=== PATIENT | female | born 1935 | race Caucasian/White ===

== ENCOUNTER 2017-07-30 10:47 | Observation (INO) | payer MEDICARE, OTHER, SELFPAY | END 2017-07-31 11:35 | disposition home or self-care (01) | PROVIDERS: Admitting Provider Internal Medicine; Emergency Provider Emergency Medicine; PCP Internal Medicine; Visit Provider Internal Medicine | DX: I50.23 Acute on chronic systolic (congestive) heart failure (principal); R06.02 Shortness of breath; R07.89 Other chest pain; I10 Essential (primary) hypertension; G47.33 Obstructive sleep apnea (adult) (pediatric); I25.10 Atherosclerotic heart disease of native coronary artery without angina pectoris; E78.5 Hyperlipidemia, unspecified | CPT/HCPCS: 36415; 71010; 71045; 80048; 80053; 83880; 84484; 85025; 85610; 85730; 93005; 93010; 96372; 96374; 99058; 99285; G0378; J1650; J1940 ==

== ENCOUNTER 2017-08-22 08:30 | Outpatient (RCR) | payer MEDICARE, OTHER, SELFPAY | END 2017-09-11 14:00 | LOC: CAR 08:30 | PROVIDERS: PCP Internal Medicine; Visit Provider Internal Medicine | DX: I20.9 Angina pectoris, unspecified (principal) ==

== ENCOUNTER → 2017-09-04 12:17 | Outpatient (CLI) | payer MEDICARE, OTHER, SELFPAY ==
[2017-09-04 13:50] LABS: Calcium 9.8 mg/dL (8.4-10.2); Estimated Glomerular Filt Rate > 60.0 mL/min (>60); Glucose 98 mg/dL (80-110); HEMOLYSIS < 15 (0-50); Sodium 145 mmol/L (137-145)
[2017-09-04 15:13] LABS: Thyroid Stimulating Hormone 0.65 uIU/mL (0.47-4.68)
== END ==
PROVIDERS: PCP Internal Medicine; Visit Provider Internal Medicine Cardiovascular Disease
DX: I50.22 Chronic systolic (congestive) heart failure (principal)
CPT/HCPCS: 36415; 80048; 83735; 84443

== ENCOUNTER 2017-10-10 14:20 | Observation (INO) | payer MEDICARE, OTHER, SELFPAY ==
[2017-10-10] VITALS (7 sets, daily range): BP systolic 107–129; BP diastolic 59–80; PULSE 57–73; RESP 16–20; TEMP 36.8–37.1; O2SAT 96–100; BMI 25.0
--- NOTE | 2017-10-10 | DI.MRI.S_ITS ---
PROCEDURE: MR STROKE Pre- and post-contrast brain MRI, non-contrast brain MR angiogram, pre- and postcontrast neck MR angiogram INDICATIONS: TIA/CVA TECHNIQUE: Brain: Noncontrast axial T1 spin echo, axial T2 fast spin echo, sagittal and axial FLAIR, coronal T2 fast spin echo, axial gradient echo, axial diffusion and ADC through the brain. After the administration of contrast, axial 3D VIBE of the cranial vasculature and brain. Brain MRA: Non-contrast 3-D time of flight MR angiogram, with multiple bcusnvr-scrdvnizj-zgdazqexsr (MIP) reformats performed. Neck MRA: Axial and sagittal TruFISP through the neck. Coronal dynamic MR angiogram during administration of contrast in the arterial and venous phases, with 3-dimenstional rnyutdl-pxibwzguy-fvfgpxtgzo (MIP) reformats constructed from subtraction images. COMPARISON: None. FINDINGS: Image quality: Excellent. BRAIN: CSF spaces: Ventricles are normal in size and shape. Basal cisterns are patent. No extra-axial fluid collections. Brain: No intracranial bleeds or mass effects. There is scattered bilateral and matter signal changes statistically representing chronic microvascular ischemic disease although technically nonspecific. Bustos-white matter interface is normal. Diffusion weighted images show no acute ischemic insults. Brainstem appears normal. Normal intravascular flow voids are present. No abnormal intracranial enhancement. Skull and face: Calvarial marrow signal is normal. Orbits appear normal. Sinuses: Sinuses and mastoids are clear. BRAIN MR ANGIOGRAM: Anterior circulation: Intracranial internal carotid arteries are normal in size and enhancement. The flow within the paired anterior cerebral arteries is normal and symmetric. The flow within the middle cerebral arteries is normal and symmetric. There is focal stenosis at the distal M1 without occlusion. The anterior communicating artery is seen. No stenoses, occlusions, or aneurysms. Posterior circulation: The visualized portions of the vertebral arteries demonstrate normal caliber, and join to form a normal appearing basilar artery. The flow within the posterior cerebral arteries is normal and symmetric. No stenoses, occlusions, or aneurysms. NECK MR ANGIOGRAM: Carotids: Great vessels demonstrate a conventional anatomy as they arise from the aortic arch. The origins of the common carotid arteries appear patent. The calibers and courses of both common carotid arteries are normal. The bifurcation regions appear normal bilaterally. The internal carotid arteries demonstrate normal course and caliber. Posterior circulation: The origins of the vertebral arteries appear patent. More superior portions of both vertebral arteries demonstrate normal course and caliber, and join to form a normal appearing basilar artery. Miscellaneous: Subclavian arteries appear patent. Pre-contrast images through the neck show no soft tissue abnormalities. IMPRESSION: BRAIN MRI: No evidence of acute ischemia. Scattered bilateral white matter signal changes presumably chronic microvascular ischemic disease although technically nonspecific BRAIN MR ANGIOGRAM: Focal stenosis at the distal right M1 segment. NECK MR ANGIOGRAM: No ICA stenosis. Focal stenosis involving the distal right vertebral artery. Dictated by: Odilon Gomes M.D. on 10/10/2017 at 20:00 Approved by: Odilon Gomes M.D. on 10/10/2017 at 20:08
--- NOTE | 2017-10-10 14:34 | ED.NEUROSD ---
HPI - Neuro Symptoms/Deficit General Chief Complaint: Neuro Symptoms/Deficit Stated Complaint: TROUBLE TALKING AND UNDERSTANDING Time Seen by Provider: 10/10/17 14:34 Source: patient and family Mode of arrival: wheelchair Limitations: no limitations History of Present Illness HPI Narrative: 82-year-old female here for evaluation of concerns of slurring her words per her and also patient concerns for ?just not feeling? patient also states that she has times at home where she feels off balance. States that it is not a room spinning sensation. This appears to have been happening several times over the past several months however has become more and more consistent to where it is now happening every other day if not every day. Symptoms seem to last a varying amount of time however do seem to resolve completely every time it does happen. Patient states she woke this morning feeling this way. Also has a headache today. Has not tried anything for it. On Anticoagulants: Yes (asa) Related Data Home Medications Medication Instructions Recorded Confirmed ACETAMINOPHEN 325 mg PO Q4HP PRN #0 11/28/16 aspirin 81 mg DAILY #0 04/22/17 [VITAMIN K2] #0 07/30/17 cholecalciferol (vitamin D3) #0 07/30/17 [Vitamin D3] magnesium #0 07/30/17 nitroglycerin [Nitrostat] 0.4 mg SUBLINGUAL #0 07/30/17 albuterol sulfate 2 puff INHALATION Q6H PRN 10/10/17 10/10/17 atorvastatin [Lipitor] 40 mg PO QDAY 10/10/17 10/10/17 furosemide 20 mg PO BID 10/10/17 10/10/17 lisinopril 2.5 mg PO BID 10/10/17 10/10/17 potassium chloride 10/10/17 10/10/17 vitamin K 1 tab PO DAILY 10/10/17 10/10/17 Previous Rx's Medication Instructions Recorded furosemide 20 mg PO BID #60 tab 07/31/17 metoprolol succinate [Toprol XL] 25 mg PO QDAY #30 tab 07/31/17 potassium chloride [Klor-Con 10] 10 meq PO BID #60 tab 07/31/17 Allergies Allergy/AdvReac Type Severity Reaction Status Date / Time Penicillins [PENICILLINS] Allergy Severe BROKE UP Unverified 07/25/17 12:27 WITH HIVES, NOT ABLE TO BREATH. Review of Systems Constitutional Denies chills, Denies fatigue, Denies fever(s), Reports headache(s), Denies lethargy and Denies malaise ENT Ears, Nose, Mouth, and Throat: Denies vertigo, Reports dizziness, Reports headache(s), Denies mouth pain and Denies neck pain Cardiovascular Denies chest pain, Denies syncope, Denies palpitations and Denies dyspnea Respiratory Denies cough and Denies dyspnea Gastrointestinal Gastrointestinal: Denies constipation, Denies diarrhea, Denies nausea and Denies vomiting Genitourinary Denies dysuria Musculoskeletal Reports abnormal gait, Denies myalgias, Denies arthralgias and Denies neck pain Integumentary/Breasts Denies lesions, Denies rash and Denies wounds Neurologic Reports abnormal speech, Reports abnormal gait, Denies behavioral changes, Reports confusion, Denies vertigo, Reports dizziness, Denies syncope, Reports headache(s), Reports lack of coordination and Reports memory loss Psychiatric Denies behavioral changes, Reports confusion and Reports memory loss Endocrine Denies fatigue and Denies palpitations [facility] Social History Smoking Status: Never smoker Exam Initial Vital Signs Initial Vital Signs: Vital Signs Temperature 98.2 F 10/10/17 14:27 Pulse Rate 60 10/10/17 14:27 Respiratory Rate 20 10/10/17 14:27 Blood Pressure 124/70 H 10/10/17 14:27 Pulse Oximetry 98 10/10/17 14:27 Const General: cooperative, comfortable and No acute distress Orientation: alert, awake, oriented to person, oriented to place and not oriented to time [facility] Head: normal to inspection, normocephalic and atraumatic Nose: external nose normal Face and sinus: normal facial exam Resp Effort & Inspection: normal respiratory effort Auscultation: clear to auscultation bilaterally Cardio Rate: regular rate Rhythm: regular rhythm Pulses: radial pulses present GI Inspection: non-distended Palpation: soft, No firm and No tender Back/Spine/Pelvis Back: No CVA tenderness Skin Lesions: no lesions Rashes: no rashes Neuro General: alert, awake, moves all extremities and CN's II-XI intact bilaterally Cranial Nerves: CN's II-XI intact bilaterally Speech: speech normal Motor: muscle tone normal throughout Sensory Exam: no sensory deficits noted Extrem General: normal to inspection and capillary refill normal Course Orders Ordered: ED Orders 10/10/17 14:48 CT head/brain wo con Stat 10/10/17 14:54 B Type Natriuretic Peptide Stat Complete Blood Count AUTO DIFF Stat Comprehensive Metabolic Panel Stat Lipase Stat Partial Thromboplastin Time Stat Prothrombin Time INR Stat Troponin I Stat Discontinued Medications Aspirin (Aspirin Chew) 324 mg PO NOW ONE Stop: 10/10/17 16:01 Vital Signs - 8 hr 10/10/17 14:27 10/10/17 15:30 Temperature 98.2 F Pulse Rate 60 57 L Respiratory Rate 20 Blood Pressure 124/70 H Blood Pressure [Right Arm] 110/63 Pulse Oximetry 98 100 MDM - Neuro Symptoms/Deficit Lab Data Attestation: I reviewed the patient's lab results. Result diagrams: 10/10/17 14:54 10/10/17 14:54 Lab Results 10/10/17 10/10/17 10/10/17 Range/Units 14:54 14:54 14:54 WBC 9.0 (4.5-11.0) X10^3/uL RBC 4.62 (4.0-5.2) X10^6/uL Hgb 14.3 (12.0-16.0) g/dL Hct 41.3 (36-46) % MCV 89.4 (80-100) fL MCH 31.0 (26-34) PG MCHC 34.7 (30-36) % RDW 14.0 (11.6-14.8) % Plt Count 180 (150-400) X10^3/uL Neut % (Auto) 71.4 (50-75) % Lymph % (Auto) 15.8 L (25-40) % [place] % (Auto) 10.6 (3-14) % Eos % (Auto) 1.3 L (2-4) % Baso % (Auto) 0.9 (0-2) % Neut # (Auto) 6500 H (7036-3299) /uL PT 14.1 H (10.1-12.7) SECONDS INR 1.3 (0.9-1.3) APTT 29 (26.4-36.2) SECONDS Sodium 134 L (137-145) mmol/L Potassium 4.2 (3.4-5.1) mmol/L Chloride 96 L (98-107) mmol/L Carbon Dioxide 27 (22-32) mmol/L BUN 17 (7-17) mg/dL Creatinine 0.80 (0.52-1.04) mg/dL Estimated GFR > 60.0 (>60) mL/min BUN/Creatinine Ratio 21.3 (6-22) Glucose 112 H (80-110) mg/dL Calcium 9.2 (8.4-10.2) mg/dL Total Bilirubin 1.1 (0.2-1.3) mg/dL AST 23 (14-36) IU/L ALT 22 (9-52) IU/L Alkaline Phosphatase 53 (38-126) U/L Troponin I 0.012 (0.01-0.034) ng/mL B-Natriuretic Peptide 114.0 H (<100) Total Protein 7.2 (6.3-8.2) g/dL Albumin 4.4 (3.5-5.0) g/dL Globulin 2.8 (1.7-4.1) g/dL Albumin/Globulin Ratio 1.6 (1.0-2.8) Lipase 86 (23-300) U/L Imaging Data CT scan - head: Radiologist's impression: PROCEDURE: CT HEAD/BRAIN WO CON INDICATIONS: 82 year-old female with dizziness and slurred speech. TECHNIQUE: Noncontrast 4.5 mm thick angled axial sections acquired from the foramen magnum to the vertex, with coronal and sagittal reformats. For radiation dose reduction, the following was used: automated exposure control, adjustment of mA and/or kV according to patient size. COMPARISON: [facility], CT, HEAD WITHOUT CONTRAST, 05/12/2013, 11:37. FINDINGS: Image quality: Excellent. CSF spaces: Basal cisterns are patent. No extra-axial fluid collections. The ventricles are symmetric in size and shape. Brain: No intracranial bleeds or masses. There are moderate periventricular and deep white matter chronic small vessel ischemic changes. There is intracranial internal carotid and bilateral vertebral artery atherosclerosis. Skull and face: Calvarium and visualized facial bones appear intact, without suspicious lesions. Sinuses: Visualized sinuses and mastoids are clear. IMPRESSION: 1. No acute intracranial abnormalities. 2. Moderate periventricular and deep white matter chronic small vessel ischemic change. Dictated by: Arnaud Clinton M.D. on 10/10/2017 at 15:07 ECG Data Attestation: I personally reviewed and interpreted this ECG as follows: Prior ECG tracings: not available for review Interpretation: Sinus bradycardia Ventricular rate of 57 Normal axis Normal QRS Normal QTC Nonspecific ST T wave changes MDM Narrative Medical decision making narrative: Patient was alert and oriented here in the emergency department. She knew where she was and was able to explain why she was here. She did stumble somewhat on the year but new other questions. Patient's states that she had a ?flutter ?in her heart and there an been some discussion in the past about implanting a device with sounds like it defibrillator. Patient states she has never been told that she has had a TIA in the past. She does not know why she is on Lasix and spironolactone. It appears that her presenting symptoms today have been becoming more frequent over the past several weeks/days. Patient did ambulate here in the emergency department with a walker and did slightly stumble somewhat every couple steps. She was given an aspirin here in the emergency department. Head CT shows no acute pathology. I discussed the case with Dr. Kramer with Internal Medicine. And have concerns for TIAs. He was able to look at the patient's clinical notes what appears that she does have a history of coronary artery disease and systolic heart failure which explains the Lasix and spironolactone. It also appears that she has been diagnosed with TIAs in the past however no indication of MRIs or carotid Dopplers. Her symptoms also could very well be the start of dementia. Will admit the patient under observation for continued evaluation and treatment of possible TIAs. Discharge Plan Departure Patient Disposition: Admitted as Observation Clinical Impression: Brain TIA
--- NOTE | 2017-10-10 14:48 | DI.CT.S_ITS ---
PROCEDURE: CT HEAD/BRAIN WO CON INDICATIONS: 82 year-old female with dizziness and slurred speech. TECHNIQUE: Noncontrast 4.5 mm thick angled axial sections acquired from the foramen magnum to the vertex, with coronal and sagittal reformats. For radiation dose reduction, the following was used: automated exposure control, adjustment of mA and/or kV according to patient size. COMPARISON: [facility], CT, HEAD WITHOUT CONTRAST, 05/12/2013, 11:37. FINDINGS: Image quality: Excellent. CSF spaces: Basal cisterns are patent. No extra-axial fluid collections. The ventricles are symmetric in size and shape. Brain: No intracranial bleeds or masses. There are moderate periventricular and deep white matter chronic small vessel ischemic changes. There is intracranial internal carotid and bilateral vertebral artery atherosclerosis. Skull and face: Calvarium and visualized facial bones appear intact, without suspicious lesions. Sinuses: Visualized sinuses and mastoids are clear. IMPRESSION: 1. No acute intracranial abnormalities. 2. Moderate periventricular and deep white matter chronic small vessel ischemic change. Dictated by: Arnaud Clinton M.D. on 10/10/2017 at 15:07 Approved by: Arnaud Clinton M.D. on 10/10/2017 at 15:12
--- NOTE | 2017-10-10 15:00 | PC.NURSE ---
Pt and report intermittent symptoms x8 months. Today she woke up with a headache and feeling confused and unsteady on her feet. She states these symptoms are constant and nothing makes it better or worse. She reports she just doesn't feel right. Her states that since last summer, she has had episodes of this where she is difficult to understand. He states she is more and more soft-spoken, and confused. She is being seen by a yarn washer for cardiac flutter, per pt report. Hx of heart failure. No swelling, chest pain, or shortness of breath noted on exam. There is no slurring of speech. FAST exam negative.
[2017-10-10 15:09] LABS: Add Manual Diff / Slide Review NO; Basophils Percent Auto 0.9 % (0-2); Eosinophils Percent Auto 1.3 % (2-4); Hematocrit 41.3 % (36-46); Hemoglobin 14.3 g/dL (12.0-16.0); INR 1.3 (0.9-1.3); Lymphocytes Percent Auto 15.8 % (25-40); Mean Corpuscular HGB Conc 34.7 % (30-36); Mean Corpuscular Volume 89.4 fL (80-100); Monocytes Percent Auto 10.6 % (3-14); Neutrophils Absolute Auto 6500 /uL (3000-5900); Neutrophils Percent Auto 71.4 % (50-75); Platelet Count 180 X10^3/uL (150-400); Prothrombin Time 14.1 SECONDS (10.1-12.7); Red Blood Cell Count 4.62 X10^6/uL (4.0-5.2)
[2017-10-10 15:11] LABS: PTT Partial Thromboplastin Tim 29 SECONDS (26.4-36.2)
[2017-10-10 15:16] LABS: Alanine Aminotransferase 22 IU/L (9-52); Albumin 4.4 g/dL (3.5-5.0); Albumin Globulin Ratio 1.6 (1.0-2.8); Alkaline Phosphatase 53 U/L (38-126); Aspartate Aminotransferase 23 IU/L (14-36); BUN Creatinine Ratio 21.3 (6-22); Bilirubin Total 1.1 mg/dL (0.2-1.3); Blood Urea Nitrogen 17 mg/dL (7-17); Calcium 9.2 mg/dL (8.4-10.2); Carbon Dioxide 27 mmol/L (22-32); Chloride 96 mmol/L (98-107); Estimated Glomerular Filt Rate > 60.0 mL/min (>60); Globulin 2.8 g/dL (1.7-4.1); Glucose 112 mg/dL (80-110); HEMOLYSIS < 15 (0-50); Lipase 86 U/L (23-300); Potassium 4.2 mmol/L (3.4-5.1); Sodium 134 mmol/L (137-145); Total Protein 7.2 g/dL (6.3-8.2)
[2017-10-10 15:28] LABS: Troponin I 0.012 ng/mL (0.01-0.034)
[2017-10-10] MEDS: ASPIRIN 81 MG TAB 324 MG PO (16:18)
--- NOTE | 2017-10-10 17:55 | PM.HP.1 ---
History of Present Illness Date Patient Seen: 10/10/17 Time Patient Seen: 17:55 Chief complaint: TROUBLE TALKING AND UNDERSTANDING Narrative: Patient is an 82-year-old female with history of systolic heart failure, coronary artery disease, prior TIA presented to the emergency department with onset of headache, difficulty keeping her balance, some difficulty with speech and confusion. Patient noticed symptoms this morning after she woke up. She found herself staggering while walking and having to hold onto things. She did not fall. She also found herself having difficulty with word recall and a little confused and also had a unusual headache. She denies loss of vision or double vision, unilateral weakness, chest pains or palpitations. Patient History Family & Social History Safety & Behavioral: Feels Safe in Current Yes Environment Tobacco & Substance use: Smoking Status Never smoker Substance Use Type does not use Meds Home Medications Medication Instructions Recorded Confirmed Type aspirin 81 mg DAILY #0 04/22/17 10/10/17 History nitroglycerin [Nitrostat] 0.4 mg SUBLINGUAL PRN PRN #0 07/30/17 10/10/17 History furosemide 20 mg PO BID #60 tab 07/31/17 10/10/17 Rx acetaminophen 650 mg PO Q6H PRN 10/10/17 10/10/17 History atorvastatin [Lipitor] 40 mg PO QDAY 10/10/17 10/10/17 History lisinopril 5 mg PO BID 10/10/17 10/10/17 History metoprolol succinate [Toprol XL] 25 mg PO QPM 10/10/17 10/10/17 History spironolactone 12.5 mg PO DAILY 10/10/17 10/10/17 History Allergies Allergy/AdvReac Type Severity Reaction Status Date / Time Penicillins [PENICILLINS] Allergy Severe BROKE UP Unverified 07/25/17 12:27 WITH HIVES, NOT ABLE TO BREATH. Review of Systems Review of Systems All systems reviewed & are unremarkable except as noted in HPI and below Exam Vital Signs (past 8 hours): - 10/10/17 14:27 10/10/17 15:30 10/10/17 16:08 Temperature 98.2 F Pulse Rate 60 57 L 71 Respiratory Rate 20 20 Blood Pressure 124/70 H Blood Pressure [Right Arm] 110/63 Pulse Oximetry 98 100 97 10/10/17 16:30 10/10/17 17:19 Temperature Pulse Rate 59 L 61 Respiratory Rate 17 16 Blood Pressure Blood Pressure [Right Arm] 129/65 H 107/59 L Pulse Oximetry 98 98 Oxygen Delivery Method Room Air Narrative Exam Narrative: GENERAL: This is an alert well-nourished, well-developed patient, in no apparent distress. HEAD: Atraumatic. Normocephalic. EYES: Pupils equal, round and reactive. Extraocular motions intact. No scleral icterus. No injection or drainage. OROPHARYNX: moist mucosa NECK: Trachea midline. No JVD or lymphadenopathy. CARDIOVASCULAR: Regular rate and rhythm without murmurs, gallops, or rubs. RESPIRATORY: Clear to auscultation bilaterally. GASTROINTESTINAL: Abdomen nondistended, soft, non-tender. No hepato-splenomegaly, or palpable masses. EXTREMITIES: No edema. NEUROLOGICAL: Alert, well oriented, speech mildly aphasic with word-finding difficulties, no obvious visual field deficit, no pronator drift, [id number] intact bilaterally, normal bilateral lower extremity strength, normal heel to mcduffie bilaterally, normal light touch sensation to face, arms and legs SKIN: warm, dry, no rash Objective Labs Result Diagrams: 10/10/17 14:54 10/10/17 14:54 Labs: EKG: Sinus rhythm, slight lateral ST depression and T-wave changes similar to prior EKG Noncontrast head CT: PROCEDURE: CT HEAD/BRAIN WO CON INDICATIONS: 82 year-old female with dizziness and slurred speech. TECHNIQUE: Noncontrast 4.5 mm thick angled axial sections acquired from the foramen magnum to the vertex, with coronal and sagittal reformats. For radiation dose reduction, the following was used: automated exposure control, adjustment of mA and/or kV according to patient size. COMPARISON: [facility], CT, HEAD WITHOUT CONTRAST, 05/12/2013, 11:37. FINDINGS: Image quality: Excellent. CSF spaces: Basal cisterns are patent. No extra-axial fluid collections. The ventricles are symmetric in size and shape. Brain: No intracranial bleeds or masses. There are moderate periventricular and deep white matter chronic small vessel ischemic changes. There is intracranial internal carotid and bilateral vertebral artery atherosclerosis. Skull and face: Calvarium and visualized facial bones appear intact, without suspicious lesions. Sinuses: Visualized sinuses and mastoids are clear. IMPRESSION: 1. No acute intracranial abnormalities. 2. Moderate periventricular and deep white matter chronic small vessel ischemic change. Dictated by: Arnaud Clinton M.D. on 10/10/2017 at 15:07 Approved by: Arnaud Clinton M.D. on 10/10/2017 at 15:12 Laboratory Results - last 24 hr 10/10/17 10/10/17 10/10/17 14:54 14:54 14:54 WBC 9.0 RBC 4.62 Hgb 14.3 Hct 41.3 MCV 89.4 MCH 31.0 MCHC 34.7 RDW 14.0 Plt Count 180 Neut % (Auto) 71.4 Lymph % (Auto) 15.8 L [place] % (Auto) 10.6 Eos % (Auto) 1.3 L Baso % (Auto) 0.9 Neut # (Auto) 6500 H PT 14.1 H INR 1.3 APTT 29 Sodium 134 L Potassium 4.2 Chloride 96 L Carbon Dioxide 27 BUN 17 Creatinine 0.80 Estimated GFR > 60.0 BUN/Creatinine Ratio 21.3 Glucose 112 H Calcium 9.2 Total Bilirubin 1.1 AST 23 ALT 22 Alkaline Phosphatase 53 Troponin I 0.012 B-Natriuretic Peptide 114.0 H Total Protein 7.2 Albumin 4.4 Globulin 2.8 Albumin/Globulin Ratio 1.6 Lipase 86 Assessment & Plan Plan: Assessment/Plan Narrative: 1. Acute TIA or CVA. Patient presents with acute ataxia, headache, some speech and memory deficits. Head CT without acute findings but showing chronic small vessel disease changes. She has history of cardiomyopathy and prior TIA. Plan: Admit to observation, neuro checks, stroke protocol MR, transthoracic echo, telemetry. Consult PT, OT and speech therapy. She is already on daily 81 mg aspirin but we can consider switching her to clopidogrel. She is on high-intensity statin as well. 2. Chronic systolic heart failure, CAD. Appears well compensated. EKG with mild ST/T-wave abnormalities at baseline. Continue routine medications. 3. Disposition. Observation status
--- NOTE | 2017-10-10 18:11 | P.HP_ITS ---
History of Present Illness Date Patient Seen: 10/10/17 Time Patient Seen: 17:55 Chief complaint: TROUBLE TALKING AND UNDERSTANDING Narrative: Patient is an 82-year-old female with history of systolic heart failure, coronary artery disease, prior TIA presented to the emergency department with onset of headache, difficulty keeping her balance, some difficulty with speech and confusion. Patient noticed symptoms this morning after she woke up. She found herself staggering while walking and having to hold onto things. She did not fall. She also found herself having difficulty with word recall and a little confused and also had a unusual headache. She denies loss of vision or double vision, unilateral weakness, chest pains or palpitations. Patient History Family & Social History Safety & Behavioral: Feels Safe in Current Yes Environment Tobacco & Substance use: Smoking Status Never smoker Substance Use Type does not use Meds Home Medications Medication Instructions Recorded Confirmed Type aspirin 81 mg DAILY #0 04/22/17 10/10/17 History nitroglycerin [Nitrostat] 0.4 mg SUBLINGUAL PRN PRN #0 07/30/17 10/10/17 History furosemide 20 mg PO BID #60 tab 07/31/17 10/10/17 Rx acetaminophen 650 mg PO Q6H PRN 10/10/17 10/10/17 History atorvastatin [Lipitor] 40 mg PO QDAY 10/10/17 10/10/17 History lisinopril 5 mg PO BID 10/10/17 10/10/17 History metoprolol succinate [Toprol XL] 25 mg PO QPM 10/10/17 10/10/17 History spironolactone 12.5 mg PO DAILY 10/10/17 10/10/17 History Allergies Allergy/AdvReac Type Severity Reaction Status Date / Time Penicillins [PENICILLINS] Allergy Severe BROKE UP Unverified 07/25/17 12:27 WITH HIVES, NOT ABLE TO BREATH. Review of Systems Review of Systems All systems reviewed & are unremarkable except as noted in HPI and below Exam Vital Signs (past 8 hours): - 10/10/17 14:27 10/10/17 15:30 10/10/17 16:08 Temperature 98.2 F Pulse Rate 60 57 L 71 Respiratory Rate 20 20 Blood Pressure 124/70 H Blood Pressure [Right Arm] 110/63 Pulse Oximetry 98 100 97 10/10/17 16:30 10/10/17 17:19 Temperature Pulse Rate 59 L 61 Respiratory Rate 17 16 Blood Pressure Blood Pressure [Right Arm] 129/65 H 107/59 L Pulse Oximetry 98 98 Oxygen Delivery Method Room Air Narrative Exam Narrative: GENERAL: This is an alert well-nourished, well-developed patient , in no apparent distress. HEAD: Atraumatic. Normocephalic. EYES: Pupils equal, round and reactive. Extraocular motions intact. No scleral icterus. No injection or drainage. OROPHARYNX: moist mucosa NECK: Trachea midline. No JVD or lymphadenopathy. CARDIOVASCULAR: Regular rate and rhythm without murmurs, gallops, or rubs. RESPIRATORY: Clear to auscultation bilaterally. GASTROINTESTINAL: Abdomen nondistended, soft, non-tender. No hepato- splenomegaly, or palpable masses. EXTREMITIES: No edema. NEUROLOGICAL: Alert, well oriented, speech mildly aphasic with word-finding difficulties, no obvious visual field deficit, no pronator drift, finger-to- nose intact bilaterally, normal bilateral lower extremity strength, normal heel to mcduffie bilaterally, normal light touch sensation to face, arms and legs SKIN: warm, dry, no rash Objective Labs Result Diagrams: 10/10/17 14:54 10/10/17 14:54 Labs: EKG: Sinus rhythm, slight lateral ST depression and T-wave changes similar to prior EKG Noncontrast head CT: PROCEDURE: CT HEAD/BRAIN WO CON INDICATIONS: 82 year-old female with dizziness and slurred speech. TECHNIQUE: Noncontrast 4.5 mm thick angled axial sections acquired from the foramen magnum to the vertex, with coronal and sagittal reformats. For radiation dose reduction, the following was used: automated exposure control, adjustment of mA and/or kV according to patient size. COMPARISON: [facility], [place], HEAD WITHOUT CONTRAST, 05/12/2013, 11:37. FINDINGS: Image quality: Excellent. CSF spaces: Basal cisterns are patent. No extra-axial fluid collections. The ventricles are symmetric in size and shape. Brain: No intracranial bleeds or masses. There are moderate periventricular and deep white matter chronic small vessel ischemic changes. There is intracranial internal carotid and bilateral vertebral artery atherosclerosis. Skull and face: Calvarium and visualized facial bones appear intact, without suspicious lesions. Sinuses: Visualized sinuses and mastoids are clear. IMPRESSION: 1. No acute intracranial abnormalities. 2. Moderate periventricular and deep white matter chronic small vessel ischemic change. Dictated by: Arnaud Clinton M.D. on 10/10/2017 at 15:07 Approved by: Arnaud Clinton M.D. on 10/10/2017 at 15:12 Laboratory Results - last 24 hr 10/10/17 10/10/17 10/10/17 14:54 14:54 14:54 WBC 9.0 RBC 4.62 Hgb 14.3 Hct 41.3 MCV 89.4 MCH 31.0 MCHC 34.7 RDW 14.0 Plt Count 180 Neut % (Auto) 71.4 Lymph % (Auto) 15.8 L [place] % (Auto) 10.6 Eos % (Auto) 1.3 L Baso % (Auto) 0.9 Neut # (Auto) 6500 H PT 14.1 H INR 1.3 APTT 29 Sodium 134 L Potassium 4.2 Chloride 96 L Carbon Dioxide 27 BUN 17 Creatinine 0.80 Estimated GFR > 60.0 BUN/Creatinine Ratio 21.3 Glucose 112 H Calcium 9.2 Total Bilirubin 1.1 AST 23 ALT 22 Alkaline Phosphatase 53 Troponin I 0.012 B-Natriuretic Peptide 114.0 H Total Protein 7.2 Albumin 4.4 Globulin 2.8 Albumin/Globulin Ratio 1.6 Lipase 86 Assessment & Plan Plan: Assessment/Plan Narrative: 1. Acute TIA or CVA. Patient presents with acute ataxia, headache, some speech and memory deficits. Head CT without acute findings but showing chronic small vessel disease changes. She has history of cardiomyopathy and prior TIA. Plan: Admit to observation, neuro checks, stroke protocol MR, transthoracic echo, telemetry. Consult PT, OT and speech therapy. She is already on daily 81 mg aspirin but we can consider switching her to clopidogrel. She is on high- intensity statin as well. 2. Chronic systolic heart failure, CAD. Appears well compensated. EKG with mild ST/T-wave abnormalities at baseline. Continue routine medications. 3. Disposition. Observation status
[2017-10-10] MEDS: ATORVASTATIN 10 MG TABLET 40 MG PO (18:26)
[2017-10-10] MEDS: LISINOPRIL 5 MG TABLET PO (21:39)
[2017-10-10] MEDS: FUROSEMIDE 20 MG TABLET PO (21:40)
[2017-10-11] VITALS (7 sets, daily range): BP systolic 87–125; BP diastolic 53–67; PULSE 59–76; RESP 14–20; TEMP 36.8–38; O2SAT 90–97
[2017-10-11] MEDS: ENOXAPARIN 40 MG/0.4 ML SYRINGE SUBCUT (09:00)
[2017-10-11] MEDS: ACETAMINOPHEN 325 MG TABLET 650 MG PO (09:00)
[2017-10-11] MEDS: FUROSEMIDE 20 MG TABLET PO (09:00)
[2017-10-11] MEDS: SPIRONOLACTONE 25 MG TABLET 12.5 MG PO (09:00)
[2017-10-11] MEDS: ASPIRIN EC 81 MG TABLET PO (09:00)
[2017-10-11] MEDS: LISINOPRIL 5 MG TABLET PO (09:00)
--- NOTE | 2017-10-11 10:16 | ST.IPIE ---
Past Medical History (Last Updated 10/10/17 @ 18:02 by Inder Kramer MD) Chronic systolic heart failure (Acute Medical) Echo 06/18/2017: EF 30%, global hypokinesis CAD (coronary artery disease) (Acute Medical) Cath 06/18/2017: 70% RCA stenosis. Medical management advised History of TIA (transient ischemic attack) (Acute Medical) Essential tremor (Acute Medical) Osteoporosis (Acute Medical) Obstructive sleep apnea (Acute Medical) Intolerant of CPAP Hyperlipidemia (Acute Medical) Hypertension (Acute Medical) Left rib fracture (Acute Medical) ST IP Initial Evaulation Report SECURITY INCIDENT RESPONSE ENGINEER Language Evaluation Start: 10/11/17 10:10 Freq: Status: Active Protocol: Document 10/11/17 10:11 TLC (Rec: 10/11/17 10:16 TLC [id number]) Language Evaluation Session Time Total Visit Minutes 20 Referral Reason for Referral Word finding difficulty Past Medical History Patient History Patient is an 82-year-old female with history of systolic heart failure, coronary artery disease, prior TIA presented to the emergency department with onset of headache, difficulty keeping her balance, some difficulty with speech and confusion. Patient noticed symptoms yesterday morning after she woke up. She found herself staggering while walking and having to hold onto things. She did not fall . She also found herself having difficulty with word recall and a little confused and also had a unusual headache. She denies loss of vision or double vision, unilateral weakness, chest pains or palpitations. Head CT revealed no acute intracranial abnormality, moderate periventricular and deep white matter chronic small vessel ischemic change Vision Vision Status Not Impaired [place] Language Language(s) Spoken in the Home Telugu - - Receptive Language Yes/No Questions Skill Level WNL Following Directions - Verbal Skill Level WNL Following Directions - Written Skill Level WNL Defining Words Skill Level WNL Auditory Comprehension Skill Level WNL Reading Comprehension Skill Level WNL - Expressive Language Automatic Speech Skill Level WNL Sentence Closure Skill Level WNL Object Naming Skill Level WNL Oral Expression Skill Level WNL Expressive Language Comments Expressive Language Comments Heather reports her symptoms have fully resolved. She denies any ongoing difficulty with word finding. during naming task, she required a phonemic cue on one occasion to come up with the word ambulance. Otherwise, she communicated simple and complex ideas, told stories and completed naming activities without difficulty. She was oriented to self, time, place, date and situation. - Recommendations Recommendations No speech therapy is warranted at this time. Handout for word retrieval strategies was provided.
--- NOTE | 2017-10-11 10:21 | PT.IIE ---
Surgical History (Last Updated 10/10/17 @ 18:01 by Inder Kramer MD) History of tonsillectomy (Acute) History of appendectomy (Acute) Personal history of spine surgery (Acute) H/O arthroscopic knee surgery (Acute) Medical History (Last Updated 10/10/17 @ 18:02 by Inder Kramer MD) Chronic systolic heart failure (Acute) CAD (coronary artery disease) (Acute) History of TIA (transient ischemic attack) (Acute) Essential tremor (Acute) Osteoporosis (Acute) Obstructive sleep apnea (Acute) Hyperlipidemia (Acute) Hypertension (Acute) Left rib fracture (Acute) Physical Therapy Inpatient Evaluation/Re-Eval M1 PT/OT-IP Prior Functional Status Start: 10/11/17 09:50 Freq: NEEDED Status: Active Protocol: Document 10/11/17 09:51 IJS (Rec: 10/11/17 10:21 IJS [email or web address]) Medical Review Prior Functional Status Medical History Reviewed Yes Diet/Fluid Consistency Regular Communication Reports having had trouble finding words, they were in her head but could not get them out. Better now. Mobility and Gait Independent without assistive device, no recent history of falls. [place] about a year ago. Activities of Daily Living and IADL's Independent and still driving per her report. Social History Household Members spouse Living Arrangements House Number of Floors (Floors) Two Floors Number of Stairs To Enter/Railing? No steps to enter but steps with a rail in the home that go to the bathroom and bedroom . Home Environment Standard Height Toilet Tub/Shower Home Equipment Grab Bars In Shower Employment Status Retired M2 PT-IP Current Condition Start: 10/11/17 09:50 Freq: NEEDED Status: Active Protocol: Document 10/11/17 09:51 IJS (Rec: 10/11/17 10:21 IJS [email or web address]) Physical Therapy Current Condition Current Condition Evaluation Date 10/11/17 Treatment Diagnosis R/O TIA vs CVA Onset Date 10/10/17 Weight Bearing Status Weight Bearing Status Full Weight Bearing M3 PT-IP Subjective Start: 10/11/17 09:50 Freq: NEEDED Status: Active Protocol: Document 10/11/17 09:51 IJS (Rec: 10/11/17 10:21 IJS [email or web address]) Subjective Physical Therapy Visit Type Type Initial Evaluation Visit Start Time 09:25 Visit Stop Time 09:50 Total Visit Minutes 25 Notes Feeling much better today, has been up to the bathroom with nursing assist. Number of HEALTH PROGRAM SPECIALIST Visits 0 Physical Therapy Visit Comments Patient Comments Hoping to go home today planning to spend the weekend with her children for the 17 of October. Therapy Pain Assessment Pain Present Pain Present Denied Pain M4 PT-IP Mobility and Gait Start: 10/11/17 09:50 Freq: NEEDED Status: Active Protocol: Document 10/11/17 09:51 IJS (Rec: 10/11/17 10:21 IJS [email or web address]) PT-Bed Mobility Assessment Rolling Level of Assist Independent Supine to Sit Supine to Sit Independent Sit to Supine Sit to Supine Independent Scooting Scooting to Edge of Bed Independent PT-Transfer Assessment Sit to and From Stand Sit to and from Stand Independent Equipment Transfer Assistive Device None Transfers Transfer Destination Chair Transfer Ability Level of Assist Independent Comments Mobility Comments Had patient don her socks and shoes, independent. Gait Assessment Gait Gait Assistance Required: Standby Assistance Distance (Feet) (feet) 300 Able to Maintain Weight Bearing Status Yes During Gait Assistive Devices Assistive Device None Gait Deviations General Gait Pattern Within Normal Limits Stair Climbing Assessment Evaluation Level of Assist On Stairs Standby Assistance Devices Stair Climbing Assistive Devices Right Railing Technique/Endurance Stair Climbing Direction Ascend and Descend Stair Climbing Technique Step Over Step Stair Climbing Set # Repetitions (reps) 4 Comments Stair Climbing Comments Slightly less stable going down the steps but safe with use of rail. PT-Balance Assessment Sitting Balance and Reactions Static Sitting Balance Ability Normal Dynamic Sitting Balance Ability Normal Standing Balance and Reactions Static Standing Balance Ability Normal Dynamic Standing Balance Ability Good Device Used None Balance Tests Single Limb Standing Able for short duration Comments Other Balance Tests/Deviations/Treatment Ryhthmic stabilization with : good balance, slightly less balanced anterior/posterior challenges. M5 PT-IP Objective Assessments Start: 10/11/17 09:50 Freq: NEEDED Status: Active Protocol: Document 10/11/17 09:51 IJS (Rec: 10/11/17 10:21 IJS [email or web address]) Orientation Orientation/Cognition Level of Alertness Alert Orientation Name Age Birthday Month Place Situation Language Function Ability No Deficits Noted Gross Range of Motion Upper Extremity ROM Assessment Within Functional Limits Lower Extremity ROM Assessment Within Functional Limits Strength Upper Extremity Strength Assessment Within Functional Limits Lower Extremity Strength Assessment Within Functional Limits Coordination Assessment Gross Coordination Gross Coordination WNL Sensation Assessment Sensation Gross Sensation WNL Light Touch Intact Proprioception (Position) Intact Muscle Tone Muscle Tone WNL Yes M6 PT-IP Treatment Start: 10/11/17 09:50 Freq: NEEDED Status: Active Protocol: Document 10/11/17 09:51 IJS (Rec: 10/11/17 10:21 IJS [email or web address]) Physical Therapy Treatment Exercises Exercises Seated Knee Flexion/Extension Shoulder Flexion M7 PT-IP Assessment and Plan Start: 10/11/17 09:50 Freq: NEEDED Status: Active Protocol: Document 10/11/17 09:51 IJS (Rec: 10/11/17 10:21 IJS [email or web address]) PT Summary Assessment and Plan Potential Rehabilitation Potential Excellent Status of Condition at Evaluation Stable Summary Assessment Summary Post admit day #1, symptoms seem to have resolved. Will discharge from PT in hopes of returning home today. Frequency of Treatment Frequency Of Treatment Discharge Recommendations To Nursing Amount of Assist Needed Independent Standby Assistance Discharge Recommendations PT Discharge Recommendations Home
--- NOTE | 2017-10-11 10:38 | CM.IDA ---
DCP Case received, EMR reviewed and met with patient. Introduced self and role. DCP template completed with info currently available. Pt is a 82 year old female who was admitted under observation at approx. 1630 to care of hospitalist team. PCP: Dr. Caballero. Payer confirmed: Medicare/Asthmatx Pt carries diagnosis of Acute TIA, and had come in yesterday with symptoms of word finding. Spoke to patient today, speech clear, and has been up walking. Will be meeting with occupational and physical therapy. Plan: Check in on status of patient after working with therapy, and MD visit to note when she will be discharged. Love muñoz RN/family independence case manager
--- NOTE | 2017-10-11 11:08 | OT.IP.EVAL ---
Past Medical History (Last Updated 10/10/17 @ 18:02 by Inder Kramer MD) Chronic systolic heart failure (Acute) CAD (coronary artery disease) (Acute) History of TIA (transient ischemic attack) (Acute) Essential tremor (Acute) Osteoporosis (Acute) Obstructive sleep apnea (Acute) Hyperlipidemia (Acute) Hypertension (Acute) Left rib fracture (Acute) Surgical History (Last Updated 10/10/17 @ 18:01 by Inder Kramer MD) History of tonsillectomy (Acute) History of appendectomy (Acute) Personal history of spine surgery (Acute) H/O arthroscopic knee surgery (Acute) Occupational Therapy Inpatient Evaluation/Re-Eval M1 PT/OT-IP Prior Functional Status Start: 10/11/17 15:59 Freq: NEEDED Status: Active Protocol: Document 10/11/17 11:08 AAMIR (Rec: 10/11/17 16:32 PJ [id number]) Medical Review Prior Functional Status Medical History Reviewed Yes Diet/Fluid Consistency Regular Communication Reports having had trouble finding words, they were in her head but could not get them out. Better now. Mobility and Gait Independent without assistive device, no recent history of falls. [place] the [place] about a year ago. Activities of Daily Living and IADL's Pt states she is independent with all self care, manages all the finances and manages her own medication by setting them up in a pillbox. She still drives. Pt states she has caregiver assist from [employer] 2x week for 6 hrs each time. They assist with cooking, cleaning, some grocery shopping. Pt reports she still drives and does some shopping independently. No family here to confirm home situation. Social History Household Members spouse Living Arrangements House Number of Floors (Floors) Two Floors Number of Stairs To Enter/Railing? no stairs to enter, pt has 6 stairs to bedroom, bathroom area with rail Home Environment Standard Height Toilet Tub/Shower Home Equipment Grab Bars In Shower Employment Status Retired Additional Social History Comment pt does not use an adaptive equipt at home, can provide 24hr assist, he drives M2 OT-IP Current Condition Start: 10/11/17 15:59 Freq: Status: Active Protocol: Document 10/11/17 11:08 AAMIR (Rec: 10/11/17 16:32 PJM [id number]) Occupational Therapy Current Condition Current Condition Evaluation Date 10/11/17 Treatment Diagnosis difficulty with communication and decreased balance due to TIA Diagnosis Onset Date 10/10/17 Weight Bearing Status Weight Bearing Status Full Weight Bearing M3 OT- IP Subjective and Pain Start: 10/11/17 15:59 Freq: Status: Active Protocol: Document 10/11/17 11:08 PJM (Rec: 10/11/17 16:32 PJ [id number]) OT- Subjective Occupational Therapy Visit Type Type Initial Evaluation Visit Start Time 10:10 Visit Stop Time 11:08 Occupational Therapy Visit Comments Patient Comments I feel like I am getting back to normal, but still have a small headache. Patient/Caregiver Goals to go home today OT Pain Assessment Pain Present Pain Present Pain Reported Location Head Intensity 2 Scale Used Numeric (1 - 10) Description Aching M4 OT- IP ADL's Start: 10/11/17 15:59 Freq: Status: Active Protocol: Document 10/11/17 11:08 PJM (Rec: 10/11/17 16:32 PJ [id number]) OT [id number] General Evaluation Diet Level for Self-Feeding general Self-Feeding Ability Independent OT ADL-Grooming General Evaluation Grooming Ability Independent Comments OT Grooming Comments standing at sink without a device OT ADL-Oral Care General Eval Oral Care Ability Independent OT ADL-Dressing General Eval Upper Body Dressing Ability Independent Lower Body Dressing Ability Independent OT ADL-Toileting General Evaluation Toileting Ability Independent OT ADL-Bathing Comments OT Bathing Comments Pt declined shower. No deficits identified that would interfere. M5 OT- IP IADL's Start: 10/11/17 15:59 Freq: Status: Active Protocol: Document 10/11/17 11:08 PJM (Rec: 10/11/17 16:32 PJ [id number]) OT-Instrumental Activities of Daily Living Home Safety Awareness Awareness of Need for Assistance at Home Good Awareness Money Management Money Management Comments Pt states she pays bills via writing checks at home. She does not use calculator and unable to do mental math. Recommend supervision at home. Meal Preparation Meal Preparation Caregiver Provides Assist Meal Preparation Comments paid caregiver assist 2x week Stretching Machine Tender Frame Stretching Machine Tender Frame Caregiver Provides Assist Stretching Machine Tender Frame Comments paid caregiver assist 2x week Driving Driving Concerns Identified Regarding Safety Driving Comments Pt's score on Trailmaking A/B raises concern about driving safety. Pt completed Trails B in . Per AMA guidelines, persons taking longer than 3 on Trails B are at higher risk of auto accident in upcoming year. Pt also has low scores on SLUMS (18/30 with normal being 27/30). M6 OT- IP Functional Cognition Start: 10/11/17 15:59 Freq: Status: Active Protocol: Document 10/11/17 11:08 PJM (Rec: 10/11/17 16:32 PJ [id number]) Cognitive Factors Limiting Selfcare Function Cognitive Ability Level of Alertness Alert Patient Orientation Name Month Date Day of Week Place Situation Attention Span Ability Capable of Focused Attention Capable of Sustained Attention Ability to Follow Commands Able to Follow One Step Commands Memory Description Short Term Impaired Halfway Impaired Working Impaired Safety Awareness Underestimates Need for Assistance Problem Solving Ability Needs Assist to Identify Solutions Executive Function Ability Unable to Remember Details Cognitive Tests SLUMS 18, Norm is 27/30 Pt had difficulty with mental math, word generation, short term and working memory. and had difficulty placing numbers and hands on clock drawing. Pt needs verbal cue to recall her and write her address. She does recall her phone number and was able to dial it correctly. Cognitive Comments Cognitive Assessment Comments Pt has significant cognitive deficits based on today's performance on SLUMS,as noted above. Pt completed Trailmaking A in 45 (mild to moderate impairment) and Trails B in (significant and severe impairment).This may be pt's baseline prior to admit. Pt reports feeling sleep deprived today which may have interfered with performance. OT- Vision and Hearing OT- Hearing Assessment OT- Hearing Assessment WFL OT- Vision Assessment Visual Acuity WFL Glasses For Reading Visual Attentiveness WFL Occular Pursuits WFL Visual Paul WFL Diplopia Absent Vision Assessment Comments Pt denies any recent vision changes. She states she had B eye surgery several years ago, but could not recall procedure or reason for surgery. M7 OT- IP Mobility and Balance Start: 10/11/17 15:59 Freq: Status: Active Protocol: Document 10/11/17 11:08 PJM (Rec: 10/11/17 16:32 PJ [id number]) OT-Transfer Assessment Sit to and From Stand Sit to and from Stand Independent Transfers Transfer Ability Independent Technique Transfer Destination Chair Toilet Devices Transfer Assistive Devices None OT- Gait Assessment Gait Gait Assistance Required: Independent Assistive Devices Assistive Device None Comments Gait Ability Comments Pt ambulating in room ad latonya without a device. OT- Balance Assessment Sitting Balance and Reactions Static Sitting Balance Ability Normal Dynamic Sitting Balance Ability Normal Standing Balance and Reactions Static Standing Balance Ability Normal Dynamic Standing Balance Ability Normal Comments Other Balance Tests/Deviations/Treatment Pt able to retrieve item from : floor without a device or handhold. M8 OT- IP Objective Assessments Start: 10/11/17 15:59 Freq: Status: Active Protocol: Document 10/11/17 11:08 PJM (Rec: 10/11/17 16:32 PJM [id number]) OT Gross Range of Motion Upper Extremity Range of Motion Assessment Within Functional Limits OT Strength Upper Extremity Strength Assessment Within Functional Limits Comments Strength Comments No focal deficits noted. OT- Coordination Assessment Comments Coordination Comments WFL BUE, handwriting at baseline OT-Muscle Tone Assessment Muscle Tone WNL Yes OT Sensation Assessment Comments Summary Comments Sensation intact in BUE Edema Edema Absent M9 OT- IP Assessment and Plan Start: 10/11/17 15:59 Freq: Status: Active Protocol: Document 10/11/17 11:08 PJM (Rec: 10/11/17 16:32 PJM [id number]) OT Summary Assessment and Plan Summary Assessment Summary Low complexity OT assessment completed. Vision and BUE sensorimotor function are WNL with no focal deficits. Pt independent with all self care tasks and ambulation in room without a device. Pt demonstrating significant cognitive deficits on SLUMS and Trails A/B as noted above. This does raise concerns about driving safety that should be addressed with her collection systems administrator. No OT goals identified for this admission. Frequency of Treatment Frequency Of Treatment Discharge Discharge Recommendations OT Discharge Recommendations Home with Assistance Home Equipment Needs none
--- NOTE | 2017-10-11 11:20 | PM.DS.1 ---
History of Present Illness Chief complaint: TROUBLE TALKING AND UNDERSTANDING Discharge Providers Date of admission: 10/10/17 16:30 Primary care physician: Riki Caballero MD Consults: 10/10/17 17:52 Consult to Physical Therapy Evaluate & Treat Comment: TIA/CVA Physician Instructions: Evaluate and Treat Consult to Speech Therapy Evaluate & Treat Comment: TIA/CVA Physician Instructions: Evaluate and treat 10/10/17 17:53 Consult to Occupational Therapy Evaluate & Treat Comment: TIA/CVA Physician Instructions: Evaluate and treat Discharge provider: Rm Solorio MD Summary Discharge Diagnosis: One. TIA 2. Chronic systolic heart failure Hospital Course: She presented with headaches and confusion some balance difficulties. CT was unremarkable MR I was also negative for acute stroke. No significant carotid disease. She was switched from aspirin to Plavix. Her symptoms have resolved she is feeling better. Status at Discharge Functional status at discharge: independent ambulation Overall status at discharge: patient is back to baseline Time Spent with Patient Greater than 30 minutes Exam Vital Signs (past 8 hours): - 10/11/17 05:00 10/11/17 05:36 10/11/17 08:30 Temperature 100.4 F H Pulse Rate 68 Respiratory Rate 14 Blood Pressure 118/64 Pulse Oximetry 95 97 94 10/11/17 08:36 Temperature 99.7 F H Pulse Rate 65 Respiratory Rate 16 Blood Pressure 115/63 Pulse Oximetry 93 Oxygen Delivery Method Room Air Oxygen Flow Rate 0 Objective Labs Result Diagrams: 10/10/17 14:54 10/10/17 14:54 Labs: Laboratory Results - last 24 hr 10/10/17 10/10/17 10/10/17 14:54 14:54 14:54 WBC 9.0 RBC 4.62 Hgb 14.3 Hct 41.3 MCV 89.4 MCH 31.0 MCHC 34.7 RDW 14.0 Plt Count 180 Neut % (Auto) 71.4 Lymph % (Auto) 15.8 L [place] % (Auto) 10.6 Eos % (Auto) 1.3 L Baso % (Auto) 0.9 Neut # (Auto) 6500 H PT 14.1 H INR 1.3 APTT 29 Sodium 134 L Potassium 4.2 Chloride 96 L Carbon Dioxide 27 BUN 17 Creatinine 0.80 Estimated GFR > 60.0 BUN/Creatinine Ratio 21.3 Glucose 112 H Calcium 9.2 Total Bilirubin 1.1 AST 23 ALT 22 Alkaline Phosphatase 53 Troponin I 0.012 B-Natriuretic Peptide 114.0 H Total Protein 7.2 Albumin 4.4 Globulin 2.8 Albumin/Globulin Ratio 1.6 Lipase 86 Discharge Plan Discharge Plan Patient Disposition: Home, Self-Care Provider Discharge Instructions Diet: Diet as Tolerated Activity: as tolerated Discharge Data Primary Care Provider: Riki Caballero V Attending Provider: Inder Kramer Admit Date/Time: 10/10/17 16:30 Quality VTE Deep Vein Thrombosis/Pulmonary Embolism Present on Admission: No
--- NOTE | 2017-10-11 14:16 | PC.NURSE ---
BP LOWER THAN THIS MORNING READING. PT DENIES DIZZINESS. LILLIAN SCHUMACHER NOTIFIED. ENC PO FLUIDS. BP RETAKEN PRIOR D/C TO HOME. BP 101/64. PT ESCORTED OUT VIA W/C. BY [facility].
== END 2017-10-11 14:00 | disposition home or self-care (01) ==
LOC: ED 15:45 → AC 16:30
PROVIDERS: Admitting Provider Internal Medicine; Emergency Provider Emergency Medicine; PCP Internal Medicine; Visit Provider Internal Medicine
DX: G45.9 Transient cerebral ischemic attack, unspecified (principal); R42 Dizziness and giddiness; R47.81 Slurred speech; I25.10 Atherosclerotic heart disease of native coronary artery without angina pectoris; I50.22 Chronic systolic (congestive) heart failure
CPT/HCPCS: 36591; 70450; 70496; 70498; 70553; 80053; 81003; 82140; 82553; 82962; 83605; 83690; 83880; 84145; 84146; 84443; 84484; 85025; 85610; 85730; 87040; 92523; 93005; 97127; 97161; 97165; 99283; 99285; 99291; G0378; Q3014; A9579; J1650; Q9967

== ENCOUNTER 2017-11-13 07:47 | Emergency (ER) | payer MEDICARE, OTHER, SELFPAY ==
[2017-10-10 17:30] VITALS: BMI 25.0
[2017-11-13 07:53] VITALS: BP 157/84; PULSE 69; RESP 24; TEMP 37; O2SAT 96; BMI 23.1
--- NOTE | 2017-11-13 08:01 | ED.NECK ---
HPI - Neck Pain/Injury General Chief Complaint: Neck Pain/Injury Stated Complaint: Sore throat R side/tonsils removed Time Seen by Provider: 11/13/17 07:49 Source: patient Mode of arrival: EMS Limitations: no limitations History of Present Illness HPI Narrative: 82-year-old female arrived by EMS for evaluation of a sore throat. Patient states that it has been going on for the past day or so. She also feels like that there is something stuck in the back of her throat. She states that yesterday she also had right ear pain. No cough. Has had chills but no defined fevers. The end of last month was sent to [facility] for diagnosis of a CVA. By report from EMS the patient has been slow to respond since that time. This is not new for this visit today. There was also reports by EMS that the patient was diagnosed with encephalitis recently by her primary doctor however I have no reports of this and there are no note in our system here. Patient confirmed upon questioning that she is at her baseline mental status And she is here because of the sore throat. Related Data Home Medications Medication Instructions Recorded Confirmed nitroglycerin [Nitrostat] 0.4 mg SUBLINGUAL PRN PRN #0 07/30/17 10/11/17 acetaminophen 650 mg PO Q6H PRN 10/10/17 10/11/17 atorvastatin [Lipitor] 40 mg PO QDAY 10/10/17 10/11/17 lisinopril 5 mg PO BID 10/10/17 10/11/17 metoprolol succinate [Toprol XL] 25 mg PO QPM 10/10/17 10/11/17 spironolactone 12.5 mg PO DAILY 10/10/17 10/11/17 Previous Rx's Medication Instructions Recorded furosemide 20 mg PO BID #60 tab 07/31/17 clopidogrel [Plavix] 75 mg PO DAILY #30 tab 10/11/17 fluticasone [Flonase Allergy 1 spray NASAL DAILY PRN #9.9 gram 11/13/17 Relief] loratadine [Claritin] 10 mg PO DAILY PRN #30 tab 11/13/17 Allergies Allergy/AdvReac Type Severity Reaction Status Date / Time Penicillins [PENICILLINS] Allergy Severe BROKE UP Verified 11/13/17 08:01 WITH HIVES, NOT ABLE TO BREATH. Review of Systems Constitutional Reports chills, Denies fever(s), Denies headache(s), Denies lethargy and Denies malaise Eyes Denies diplopia ENT Ears, Nose, Mouth, and Throat: Denies dysphagia, Denies vertigo, Denies dizziness, Reports otalgia ( Right ear), Denies headache(s), Denies neck pain, Reports sinus pressure, Reports sore throat, Denies throat swelling and Denies tongue swelling Cardiovascular Denies chest pain and Denies dyspnea Respiratory Denies dyspnea Gastrointestinal Gastrointestinal: Denies abdominal pain, Denies dysphagia, Denies nausea and Denies vomiting Musculoskeletal Denies myalgias, Denies arthralgias and Denies neck pain Integumentary/Breasts Denies lesions and Denies rash Neurologic Denies vertigo, Denies dizziness and Denies headache(s) Hematologic/Lymphatic Denies easy bleeding and Denies easy bruising Allergic/Immunologic Denies throat swelling and Denies tongue swelling [facility] Medical History Chronic systolic heart failure (Acute) CAD (coronary artery disease) (Acute) History of TIA (transient ischemic attack) (Acute) Essential tremor (Acute) Osteoporosis (Acute) Obstructive sleep apnea (Acute) Hyperlipidemia (Acute) Hypertension (Acute) Left rib fracture (Acute) Surgical History History of tonsillectomy (Acute) History of appendectomy (Acute) Personal history of spine surgery (Acute) H/O arthroscopic knee surgery (Acute) Social History household members: spouse Smoking Status: Never smoker Comment: reviewed patient's past medical surgical family and social history Exam Initial Vital Signs Initial Vital Signs: Vital Signs Temperature 98.6 F 11/13/17 07:53 Pulse Rate 69 11/13/17 07:53 Respiratory Rate 24 11/13/17 07:53 Blood Pressure 157/84 H 11/13/17 07:53 Pulse Oximetry 96 11/13/17 07:53 Const General: cooperative, healthy appearing, comfortable, well developed, well groomed and No acute distress Orientation: alert, awake and oriented x3 HENMT Head: normal to inspection, normocephalic and atraumatic Ears: TM's normal bilaterally ( potentially small amount of fluid behind the right ear) Nose: external nose normal and nares normal Face and sinus: sinuses nontender and face symmetric Mouth: oral mucosae normal, lip normal, tongue normal, oropharynx normal and mucous membranes abnormal Teeth and gingiva: gingiva normal Throat: posterior oropharynx normal and uvula midline Eyes Pupils: PERRL EOM: EOM intact bilaterally Neck Lymphatic: No lymphedema and No lymphadenopathy Resp Effort & Inspection: normal respiratory effort and no cough Auscultation: clear to auscultation bilaterally Cardio Rate: regular rate Pulses: radial pulses present Skin Lesions: no lesions Rashes: no rashes Neuro General: alert, awake and oriented x3 Other: patient was awake and oriented however was somewhat slow to respond. By report this is baseline for her was able to move all 4 extremities without any problems. Psych Appearance: grossly normal and well kempt Course Vital Signs - 8 hr 11/13/17 07:53 Temperature 98.6 F Pulse Rate 69 Respiratory Rate 24 Blood Pressure 157/84 H Pulse Oximetry 96 MDM - Neck Pain/Injury MDM Narrative Medical decision making narrative: Patient at baseline mental status per her and per EMS report. Patient was able to ambulate to the restroom here without any problems. Has a relatively benign exam however does have a very mild erythema in the back of her throat. Will hold on any testing for now as I feel that strep throat is unlikely given her physical exam. She has no lymphadenopathy. A small amount of fluid behind her right ear. No indication for antibiotics. Will send home on decongestants. Was given return precautions. She expressed understanding and agreement with plan. Discharge Plan Departure Patient Disposition: Home, Self-Care Clinical Impression: Pharyngitis, Acute upper respiratory infection Instructions: Sore Throat, DI for Viral Pharyngitis Activity Restrictions/Additional Instructions: recommend that you continue all of your medications as directed. The medications you were given today at recommend that you take on a daily basis for the next week and then after that you can do as needed. Call your primary care doctor for a follow-up. Return to the emergency department for any new or worsening symptoms Prescriptions: New fluticasone [Flonase Allergy Relief] 50 mcg/actuation spray,suspension 1 spray NASAL DAILY PRN (Reason: allergy symptoms) Qty: 9.9 RF: 0 loratadine [Claritin] 10 mg tablet 10 mg PO DAILY PRN (Reason: allergy symptoms) Qty: 30 RF: 0 No Action nitroglycerin [Nitrostat] 0.4 MG tablet, sublingual 0.4 mg Sublingual PRN PRN (Reason: Chest Pain) Qty: 0 RF: 0 furosemide 20 MG tablet 20 mg PO BID Qty: 60 RF: 0 lisinopril 2.5 mg tablet 5 mg PO BID RF: 0 atorvastatin [Lipitor] 10 MG tablet 40 mg PO QDAY RF: 0 acetaminophen 325 mg Tablet 650 mg PO Q6H PRN (Reason: Fever Or Pain) RF: 0 spironolactone 25 mg tablet 12.5 mg PO DAILY RF: 0 metoprolol succinate [Toprol XL] 25 MG tablet extended release 24 hr 25 mg PO QPM RF: 0 clopidogrel [Plavix] 75 mg tablet 75 mg PO DAILY Qty: 30 RF: 0
[2017-11-13 09:18] VITALS: BP 136/81; PULSE 76; RESP 20; TEMP 36.4; O2SAT 96
== END 2017-11-13 09:19 | disposition home or self-care (01) ==
LOC: ED 08:31
PROVIDERS: Emergency Provider Emergency Medicine; PCP Internal Medicine
DX: J02.9 Acute pharyngitis, unspecified (principal); J06.9 Acute upper respiratory infection, unspecified
CPT/HCPCS: 99282

== ENCOUNTER 2018-01-29 09:40 | Emergency (ER) | payer MEDICARE, OTHER, SELFPAY ==
[2017-10-10 17:30] VITALS: BMI 25.0
[2018-01-29 09:47] VITALS: BP 174/92; PULSE 70; RESP 18; TEMP 36.5; O2SAT 99; BMI 21.7
--- NOTE | 2018-01-29 09:55 | ED.WEAKNESS ---
HPI - Weakness General Chief complaint: Weakness Stated complaint: Weakness/ SOB Time Seen by Provider: 01/29/18 09:51 Source: patient Mode of arrival: ambulatory Limitations: no limitations History of Present Illness HPI Narrative: Patient is an 82-year-old female here for evaluation of a dizzy episode that she had this morning. Patient states that she normally has unsteadiness when she goes from lying to sitting and sitting to standing. She states she did have this this morning. She states that had a separate episode she was standing in the kitchen where she states she felt like she was going to fall. At the time but she did not have a room spinning sensation. No shortness of breath no chest pain no palpitations. She does state that since she woke up this morning she has had ?chest pressure? she states she has never had before. No shortness of breath. Related Data Home Medications Medication Instructions Recorded Confirmed nitroglycerin [Nitrostat] 0.4 mg SUBLINGUAL PRN PRN #0 07/30/17 10/11/17 acetaminophen 650 mg PO Q6H PRN 10/10/17 10/11/17 atorvastatin [Lipitor] 40 mg PO QDAY 10/10/17 10/11/17 lisinopril 5 mg PO BID 10/10/17 10/11/17 metoprolol succinate [Toprol XL] 25 mg PO QPM 10/10/17 10/11/17 spironolactone 12.5 mg PO DAILY 10/10/17 10/11/17 levetiracetam 1 tab PO BID 01/29/18 01/29/18 Previous Rx's Medication Instructions Recorded furosemide 20 mg PO BID #60 tab 07/31/17 clopidogrel [Plavix] 75 mg PO DAILY #30 tab 10/11/17 fluticasone [Flonase Allergy 1 spray NASAL DAILY PRN #9.9 gram 11/13/17 Relief] loratadine [Claritin] 10 mg PO DAILY PRN #30 tab 11/13/17 Allergies Allergy/AdvReac Type Severity Reaction Status Date / Time Penicillins [PENICILLINS] Allergy Severe BROKE UP Verified 01/29/18 09:47 WITH HIVES, NOT ABLE TO BREATH. Review of Systems Constitutional Denies fatigue, Denies fever(s), Denies frequent falls and Denies headache(s) ENT Ears, Nose, Mouth, and Throat: Denies vertigo, Denies headache(s) and Reports disequilibrium Cardiovascular Denies diaphoresis, Denies syncope, Denies rapid heart rate, Denies edema and Denies dyspnea Comments: Chest pressure Respiratory Denies pain on inspiration and Denies dyspnea Gastrointestinal Gastrointestinal: Denies abdominal pain, Denies nausea and Denies vomiting Musculoskeletal Denies myalgias, Denies arthralgias and Denies numbness Integumentary/Breasts Denies lesions and Denies rash Neurologic Denies confusion, Denies vertigo, Denies syncope, Denies frequent falls, Denies headache(s), Denies memory loss, Denies numbness, Denies sensory deficit and Reports disequilibrium Psychiatric Denies confusion and Denies memory loss Endocrine Denies fatigue Hematologic/Lymphatic Denies easy bleeding and Denies easy bruising [facility] Medical History Chronic systolic heart failure (Acute) CAD (coronary artery disease) (Acute) History of TIA (transient ischemic attack) (Acute) Essential tremor (Acute) Osteoporosis (Acute) Obstructive sleep apnea (Acute) Hyperlipidemia (Acute) Hypertension (Acute) Left rib fracture (Acute) Surgical History History of tonsillectomy (Acute) History of appendectomy (Acute) Personal history of spine surgery (Acute) H/O arthroscopic knee surgery (Acute) Social History household members: spouse Smoking Status: Never smoker Exam Initial Vital Signs Initial Vital Signs: Vital Signs Temperature 97.7 F 01/29/18 09:47 Pulse Rate 70 01/29/18 09:47 Respiratory Rate 18 01/29/18 09:47 Blood Pressure 174/92 H 01/29/18 09:47 Pulse Oximetry 99 01/29/18 09:47 Const General: cooperative, comfortable, well developed, well groomed and No acute distress Orientation: alert, awake and oriented to person Other: Stated that it was 1918 rather than 2017. Did not know the name of the president ANI Head: normal to inspection and normocephalic Resp Effort & Inspection: normal respiratory effort Auscultation: clear to auscultation bilaterally Cardio Rate: regular rate Rhythm: regular rhythm GI Inspection: non-distended Palpation: soft, No firm and No tender Skin Lesions: no lesions Rashes: no rashes Neuro General: alert and awake Speech: speech normal Sensory Exam: no sensory deficits noted Extrem General: normal to inspection and capillary refill normal Psych Appearance: grossly normal and well kempt Course Orders Ordered: ED Orders 01/29/18 09:56 XR chest 1V Stat 01/29/18 10:30 Complete Blood Count AUTO DIFF Stat Comprehensive Metabolic Panel Stat Lipase Stat Troponin I Stat 01/29/18 11:36 EKG-12 Lead Routine Discontinued Medications Aspirin (Aspirin Chew) 324 mg PO NOW ONE Stop: 01/29/18 09:57 Last Admin: 01/29/18 10:16 Dose: Vital Signs - 8 hr 01/29/18 09:47 01/29/18 10:33 01/29/18 10:44 Temperature 97.7 F Pulse Rate 70 61 66 Respiratory Rate 18 16 13 Blood Pressure 174/92 H Blood Pressure [Left Arm] 138/71 138/70 Pulse Oximetry 99 97 01/29/18 12:29 Temperature Pulse Rate 61 Respiratory Rate 16 Blood Pressure Blood Pressure [Left Arm] 151/69 H Pulse Oximetry 96 MDM - Weakness Medical Records Attestation: I reviewed the patient's medical records. Lab Data Attestation: I reviewed the patient's lab results. Result diagrams: 01/29/18 10:30 01/29/18 10:30 Lab Results 01/29/18 01/29/18 Range/Units 10:30 10:30 WBC 7.0 (4.5-11.0) X10^3/uL RBC 4.59 (4.0-5.2) X10^6/uL Hgb 14.8 (12.0-16.0) g/dL Hct 43.0 (36-46) % MCV 93.7 (80-100) fL MCH 32.2 (26-34) PG MCHC 34.4 (30-36) % RDW 13.1 (11.6-14.8) % Plt Count 188 (150-400) X10^3/uL Neut % (Auto) 53.8 (50-75) % Lymph % (Auto) 27.8 (25-40) % Wilkin % (Auto) 10.6 (3-14) % Eos % (Auto) 6.9 H (2-4) % Baso % (Auto) 0.9 (0-2) % Neut # (Auto) 3800 (2151-0030) /uL Sodium 145 (137-145) mmol/L Potassium 4.1 (3.4-5.1) mmol/L Chloride 104 (98-107) mmol/L Carbon Dioxide 29 (22-32) mmol/L BUN 14 (7-17) mg/dL Creatinine 0.70 (0.52-1.04) mg/dL Estimated GFR > 60.0 (>60) mL/min BUN/Creatinine Ratio 20.0 (6-22) Glucose 98 (80-110) mg/dL Calcium 9.7 (8.4-10.2) mg/dL Total Bilirubin 0.8 (0.2-1.3) mg/dL AST 38 H (14-36) IU/L ALT 41 (9-52) IU/L Alkaline Phosphatase 76 (38-126) U/L Troponin I 0.013 (0.01-0.034) ng/mL Total Protein 7.2 (6.3-8.2) g/dL Albumin 4.5 (3.5-5.0) g/dL Globulin 2.7 (1.7-4.1) g/dL Albumin/Globulin Ratio 1.7 (1.0-2.8) Lipase 172 (23-300) U/L Urine Dip Bedside Urine Glucose Negative Bedside Urine Bilirubin - Negative Bedside Urine Ketone - Negative Urine Specific Roundup 1.015 Bedside Urine Occult Blood - Negative Bedside Urine pH 6.0 Bedside Urine Protein - Negative Bedside Urine Urobilinogen - Negative Bedside Urine Nitrite - Negative Bedside Urine Leukocytes - Negative Esterase Imaging Data Chest x-ray: Radiologist's impression: PROCEDURE: XR CHEST 1V INDICATIONS: chest tightness TECHNIQUE: One view of the chest was acquired. COMPARISON: [facility], , XR CHEST 2 VIEWS, 11/30/2017, 7:04. [facility], , CHEST 1 VIEW, 07/30/2017, 11:11. [facility], , CHEST 2 VIEW, 04/24/2017, 10:19. [facility], , CHEST 2 VIEW, 04/22/2017, 12:58. FINDINGS: Surgical changes and devices: Pacemaking device with single chamber lead. Lungs and pleura: No pleural effusions or pneumothorax. Lungs are abnormal with mild interstitial prominence previously present. No acute disease, however. Mediastinum: Mediastinal contours appear normal. Heart size is normal. Bones and chest wall: No suspicious bony lesions. Overlying soft tissues appear unremarkable. IMPRESSION: Pacemaking device appears normal, previously present. Chronic mild interstitial prominence, source of new chest symptoms not found. Dictated by: Yeyo Benjamin M.D. on 01/29/2018 at 10:27 Approved by: Yeyo Benjamin M.D. on 01/29/2018 at 10:28 ECG Data Attestation: I personally reviewed and interpreted this ECG as follows: Prior ECG tracings: not available for review Interpretation: Sinus rhythm Ventricular rate is [address] ST depressions V4 V5 otherwise no other ST T wave changes Normal QRS Normal QTC MDM Narrative Medical decision making narrative: Patient reports that she feels much better. She was able to ambulate to the bathroom without any problems. She states that her chest discomfort is all but gone. She does have a pacemaker in place. I had a long discussion with the patient regarding her symptoms. They are not consistent with a CVA or TIA. Troponin was negative. I did discuss that her EKG was nonspecific. We did discuss the possibility of admitting her to the hospital versus following up as an outpatient. After this discussion the patient opted to call her diesel engine specialist to schedule a follow-up as an outpatient. I did offer her admission to the hospital she was given return precautions. She expressed understanding and agreement with plan. Discharge Plan Departure Patient Disposition: Home Clinical Impression: Disequilibrium Instructions: DI for Atypical Chest Pain Activity Restrictions/Additional Instructions: Continue all of your medications as directed. It is important that you contact your primary doctor and also your diesel engine specialist for follow-up in the next couple days to discuss further workup. You may return to the emergency department for any new or worsening symptoms Prescriptions: No Action nitroglycerin [Nitrostat] 0.4 MG tablet, sublingual 0.4 mg Sublingual PRN PRN (Reason: Chest Pain) Qty: 0 RF: 0 furosemide 20 MG tablet 20 mg PO BID Qty: 60 RF: 0 lisinopril 2.5 mg tablet 5 mg PO BID RF: 0 atorvastatin [Lipitor] 10 MG tablet 40 mg PO QDAY RF: 0 acetaminophen 325 mg Tablet 650 mg PO Q6H PRN (Reason: Fever Or Pain) RF: 0 spironolactone 25 mg tablet 12.5 mg PO DAILY RF: 0 metoprolol succinate [Toprol XL] 25 MG tablet extended release 24 hr 25 mg PO QPM RF: 0 clopidogrel [Plavix] 75 mg tablet 75 mg PO DAILY Qty: 30 RF: 0 fluticasone [Flonase Allergy Relief] 50 mcg/actuation spray,suspension 1 spray NASAL DAILY PRN (Reason: allergy symptoms) Qty: 9.9 RF: 0 loratadine [Claritin] 10 mg tablet 10 mg PO DAILY PRN (Reason: allergy symptoms) Qty: 30 RF: 0 levetiracetam 500 mg tablet 1 tab PO BID RF: 0
--- NOTE | 2018-01-29 09:56 | DI.RAD.S_ITS ---
PROCEDURE: XR CHEST 1V INDICATIONS: chest tightness TECHNIQUE: One view of the chest was acquired. COMPARISON: [facility], CR, XR CHEST 2 VIEWS, 11/30/2017, 7:04. [facility], CR, CHEST 1 VIEW, 07/30/2017, 11:11. [facility], CR, CHEST 2 VIEW, 04/24/2017, 10:19. [facility], CR, CHEST 2 VIEW, 04/22/2017, 12:58. FINDINGS: Surgical changes and devices: Pacemaking device with single chamber lead. Lungs and pleura: No pleural effusions or pneumothorax. Lungs are abnormal with mild interstitial prominence previously present. No acute disease, however. Mediastinum: Mediastinal contours appear normal. Heart size is normal. Bones and chest wall: No suspicious bony lesions. Overlying soft tissues appear unremarkable. IMPRESSION: Pacemaking device appears normal, previously present. Chronic mild interstitial prominence, source of new chest symptoms not found. Dictated by: Yeyo Benjamin M.D. on 01/29/2018 at 10:27 Approved by: Yeyo Benjamin M.D. on 01/29/2018 at 10:28
[2018-01-29 10:33] VITALS: BP 138/71; PULSE 61; RESP 16; O2SAT 97
[2018-01-29 10:44] VITALS: BP 138/70; PULSE 66; RESP 13
[2018-01-29 10:51] LABS: Add Manual Diff / Slide Review NO; Basophils Percent Auto 0.9 % (0-2); Eosinophils Percent Auto 6.9 % (2-4); Hemoglobin 14.8 g/dL (12.0-16.0); Lymphocytes Percent Auto 27.8 % (25-40); Mean Corpuscular HGB Conc 34.4 % (30-36); Mean Corpuscular Hemoglobin 32.2 PG (26-34); Mean Corpuscular Volume 93.7 fL (80-100); Monocytes Percent Auto 10.6 % (3-14); Neutrophils Absolute Auto 3800 /uL (3000-5900); Neutrophils Percent Auto 53.8 % (50-75); Platelet Count 188 X10^3/uL (150-400); Red Blood Cell Count 4.59 X10^6/uL (4.0-5.2); Red Cell Distribution Width 13.1 % (11.6-14.8)
[2018-01-29 11:00] LABS: Alanine Aminotransferase 41 IU/L (9-52); Albumin 4.5 g/dL (3.5-5.0); Albumin Globulin Ratio 1.7 (1.0-2.8); Alkaline Phosphatase 76 U/L (38-126); Aspartate Aminotransferase 38 IU/L (14-36); Bilirubin Total 0.8 mg/dL (0.2-1.3); Blood Urea Nitrogen 14 mg/dL (7-17); Calcium 9.7 mg/dL (8.4-10.2); Carbon Dioxide 29 mmol/L (22-32); Chloride 104 mmol/L (98-107); Estimated Glomerular Filt Rate > 60.0 mL/min (>60); Globulin 2.7 g/dL (1.7-4.1); Glucose 98 mg/dL (80-110); HEMOLYSIS < 15 (0-50); Lipase 172 U/L (23-300); Potassium 4.1 mmol/L (3.4-5.1); Sodium 145 mmol/L (137-145); Total Protein 7.2 g/dL (6.3-8.2)
[2018-01-29 11:12] LABS: Troponin I 0.013 ng/mL (0.01-0.034)
[2018-01-29 12:29] VITALS: BP 151/69; PULSE 61; RESP 16; O2SAT 96
== END 2018-01-29 13:21 | disposition home or self-care (01) ==
PROVIDERS: Emergency Provider Emergency Medicine; PCP Internal Medicine
DX: R42 Dizziness and giddiness (principal)
CPT/HCPCS: 36591; 71045; 80053; 81003; 83690; 84484; 85025; 93005; 93010; 93041; 99283; 99285

== ENCOUNTER → 2018-05-14 09:43 | Outpatient (CLI) | payer MEDICARE, OTHER, SELFPAY ==
[2017-10-10 17:30] VITALS: BMI 25.0
[2018-05-14 11:28] LABS: BUN Creatinine Ratio 17.5 (6-22); Blood Urea Nitrogen 14 mg/dL (7-17); Calcium 10.3 mg/dL (8.4-10.2); Carbon Dioxide 30 mmol/L (22-32); Chloride 101 mmol/L (98-107); Estimated Glomerular Filt Rate > 60.0 mL/min (>60); Glucose 88 mg/dL (80-110); HEMOLYSIS < 15 (0-50); Potassium 5.3 mmol/L (3.4-5.1); Sodium 141 mmol/L (137-145)
== END ==
PROVIDERS: PCP Internal Medicine; Visit Provider Internal Medicine Cardiovascular Disease
DX: I50.22 Chronic systolic (congestive) heart failure (principal)
CPT/HCPCS: 36415; 80048